=== PATIENT | female | born 1960 | race Caucasian/White ===

== ENCOUNTER → 2024-05-30 | Outpatient (CLI) | payer MEDICARE, BC ==
--- NOTE | 2024-05-30 12:42 | BD ---
EXAMINATION TYPE: Axial Bone Density DATE OF EXAM: 05/30/2024 CLINICAL HISTORY: 64 years old Female. ICD-10 CODE: S22.060D WEDGE COMPRSN FX [id number] VERTEBRA, SUBS F OR , Additional History: Height: 62 in Weight: 131 lbs FRAX RISK QUESTIONS: Family History (Parent hip fracture): yes mother History of Fracture in Adulthood: thoracic spine age 64 EXAM MEASUREMENTS: Bone mineral densitometry was performed using the [employer] System. Bone mineral density as measured about the Lumbar spine is: ----- L1-L4(G/cm2): 1.134 T Score Values are as follows: ----- L1: -1.0 ----- L2: -0.8 ----- L3: -0.4 ----- L4: 0.1 ----- L1-L4: -0.4 Z Score Values are as follows: ----- L1: 0.8 ----- L2: 1.0 ----- L3: 1.4 ----- L4: 1.9 ----- L1-L4: 1.4 Bone mineral density baseline Bone mineral density about the R hip (g/cm2): 0.853 Bone mineral density about the L hip (g/cm2): 0.909 T Score values are as follows: -----R Neck: -1.3 -----L Neck: -0.8 -----R Total: -1.2 -----L Total: -0.8 Z Score values are as follows: -----R Neck: 0.3 -----L Neck: 0.8 -----R Total: 0.1 -----L Total: 0.5 Bone mineral density baseline FRAX%s: The graph provided illustrates a 26.0% chance for a major osteoporotic fx and a 1.3% chance f or the hips probability for fx in 10 years time. IMPRESSION: Normal (Values between +1 and -1 indicate normal bone mass). Consider repeating this study in 5 year s or sooner if there is some new clinical indication. NOTE: T-SCORE=SD OF THE YOUNG ADULT MEAN. [facility], Workstation: [id number], 05/30/2024 12:40 PM
== END | disposition home or self-care (01) ==
LOC: RADBDWWP 11:10
PROVIDERS: ATTEND Internal Medicine Endocrinology, Diabetes & Metabolism
DX: S22.060D Wedge compression fracture of T7-T8 vertebra, subsequent encounter for fracture with routine healing (principal); R29.890 Loss of height; X58.XXXD Exposure to other specified factors, subsequent encounter
CPT/HCPCS: 77080